=== PATIENT | female | born 1940 | race African-American/Black ===

== ENCOUNTER 2018-11-07 19:18 | Inpatient (IN) | payer MEDICARE, MEDICAID ==
[~2018-11-07] VITALS: Ht 157.5 cm; Wt 92.5 kg
[~2018-11-07 19:18] MED LIST: ISOS60TA4 PO; LACT10SO6 PO; MELO-106 MT; MONT10TA24 PO; SIMV40TA2 PO; SPIR25TA6 PO
[2018-11-07] MEDS ORDERED: ASPIRIN 81MG TABLET PO ONE (20:45)
[2018-11-07 21:32] LABS: HEMOGLOBIN. 10.4 g/dL (12.0-16.0); MEAN CORPUSCULAR HEMOGLOBIN 27.3 pg (28.0-32.0); MEAN CORPUSCULAR VOLUME 86.4 fL (81.0-99.0); PLATELET 222 x1000/uL (130-400); RED BLOOD CELL COUNT 3.82 mill/uL (4.2-5.4); RED CELL DISTRIBUTION WIDTH 18.2 % (11.6-14.6)
[2018-11-07 21:37] LABS: CHLORIDE 102 mEq/L (98-107)
[2018-11-07] MEDS ORDERED: FUROSEMIDE 20MG/2ML VIAL IVP ONE (22:00)
[2018-11-07 22:08] LABS: PLATELET ESTIMATE NORMAL
[2018-11-07] MEDS ORDERED: DIPHENHYDRAMINE 50MG/ML VIAL IV PRN (22:15)
[2018-11-07] MEDS ORDERED: NA PHOS,M-B/NA PHOS,DI-BA ENEMA 118ML PR PRN (22:15)
[2018-11-07] MEDS ORDERED: MAGNESIUM/ALUMINUM HYDROXIDE/SIMETHICONE 30ML UDC PO PRN (22:15)
[2018-11-07] MEDS ORDERED: NITROGLYCERIN 0.4MG TABLET SL SL PRN (22:15)
[2018-11-07] MEDS ORDERED: ONDANSETRON HCL 4MG/2ML INJ IV PRN (22:15)
[2018-11-07] MEDS ORDERED: ACETAMINOPHEN 325MG TABLET PO PRN (22:15)
[2018-11-07] MEDS ORDERED: CLONIDINE 0.1MG TABLET PO PRN (22:15)
[2018-11-07] MEDS ORDERED: ENOXAPARIN 40MG/0.4ML SYR SUBCUT SCH (22:15)
[2018-11-07 23:17] LABS: FOLIC ACID (FOLATE) SERUM 11.9 ng/mL (>5.38)
[2018-11-08] MEDS: GUAIFENESIN 200MG/10ML SUGAR FREE UDC PO PRN ×2 (02:46→23:07)
[2018-11-08] MEDS: IPRATROPIUM/ALBUTEROL 0.5-3(2.5)MG/3ML NEB INH PRN (05:27)
[2018-11-08] MEDS: CARVEDILOL 3.125 MG TABLET PO SCH ×2 (06:00→18:07)
[2018-11-08 06:28] LABS: CREATINE KINASE MB FRACTION 1.2 ng/mL (0.5-3.6)
[2018-11-08] MEDS: ASPIRIN 325MG EC TABLET PO SCH (09:00)
[2018-11-08] MEDS: ENOXAPARIN 30MG/0.3ML SYR SUBCUT SCH (09:00)
[2018-11-08] MEDS: SPIRONOLACTONE 25MG TABLET PO SCH ×2 (09:00→21:00)
[2018-11-08] MEDS: FAMOTIDINE 20MG TABLET PO SCH (09:00)
[2018-11-08] MEDS: FUROSEMIDE 40MG/4ML VIAL IVP SCH ×2 (09:35→21:00)
[2018-11-08 17:02] LABS: CREATINE KINASE MB FRACTION 1.1 ng/mL (0.5-3.6)
[2018-11-08] MEDS: ATORVASTATIN CALCIUM 20MG TABLET PO SCH (21:00)
[2018-11-08 22:00] VITALS: BP 118/69
[2018-11-08] MEDS ORDERED: FURO80TA87 PO (22:16)
[2018-11-08] MEDS ORDERED: ASPI-1159 PO (22:16)
[2018-11-08] MEDS ORDERED: ALBUL GT (22:17)
[2018-11-08] MEDS: ZOLPIDEM TARTRATE 5MG TABLET PO PRN (23:07)
[2018-11-08 23:34] VITALS: BP 122/66
[2018-11-09 04:00] VITALS: BP 135/77
[2018-11-09] MEDS: CARVEDILOL 3.125 MG TABLET PO SCH ×2 (05:20→17:04)
[2018-11-09 08:00] VITALS: BP 121/89
[2018-11-09] MEDS: SPIRONOLACTONE 25MG TABLET PO SCH ×2 (08:38→20:17)
[2018-11-09] MEDS: ASPIRIN 325MG EC TABLET PO SCH (08:38)
[2018-11-09] MEDS: FAMOTIDINE 20MG TABLET PO SCH (08:38)
[2018-11-09] MEDS: FUROSEMIDE 40MG/4ML VIAL IVP SCH ×2 (08:38→20:16)
[2018-11-09] MEDS: DOCUSATE SODIUM 100MG CAPSULE PO PRN ×2 (08:38→22:27)
[2018-11-09] MEDS: ENOXAPARIN 30MG/0.3ML SYR SUBCUT SCH (08:39)
[2018-11-09 09:50] LABS: EOSINOPHILS % 3.7 % (0.0-5.0); HEMATOCRIT. 35.2 % (36.0-48.0); HEMOGLOBIN. 11.3 g/dL (12.0-16.0); LYMPHOCYTES % 21.4 % (20.0-50.0); MEAN CORPUSCULAR HEMOGLOBIN 27.6 pg (28.0-32.0); MEAN CORPUSCULAR VOLUME 86.3 fL (81.0-99.0); MEAN PLATELET VOLUME 9.1 fl (7.4-10.4); MONOCYTES % 13.1 % (2.0-8.0); NEUTROPHILS % 60.8 % (40.0-76.0); PLATELET 226 x1000/uL (130-400); RED BLOOD CELL COUNT 4.08 mill/uL (4.2-5.4); RED CELL DISTRIBUTION WIDTH 17.6 % (11.6-14.6)
[2018-11-09 09:53] LABS: CHLORIDE 106 mEq/L (98-107)
[2018-11-09 12:00] VITALS: BP 108/64
[2018-11-09] MEDS: TRAMADOL 50MG TABLET PO PRN (15:24)
[2018-11-09 16:00] VITALS: BP 111/79
[2018-11-09 20:00] VITALS: BP 118/82
[2018-11-09] MEDS: ATORVASTATIN CALCIUM 20MG TABLET PO SCH (20:16)
[2018-11-10] VITALS: BP 125/71
[2018-11-10 04:00] VITALS: BP 137/83
[2018-11-10] MEDS: CARVEDILOL 3.125 MG TABLET PO SCH ×2 (05:45→18:03)
[2018-11-10 06:25] LABS: *AMPHETAMINES SCREEN URINE NEGATIVE (NEGATIVE); *BARBITURATES SCREEN URINE NEGATIVE (NEGATIVE); *BENZODIAZEPINES SCREEN URINE NEGATIVE (NEGATIVE); *COCAINE SCREEN URINE NEGATIVE (NEGATIVE); METHADONE URINE SCREEN NEGATIVE (NEGATIVE); OPIATES URINE SCREEN NEGATIVE (NEGATIVE)
[2018-11-10 06:26] LABS: CANNABINOID URINE SCREEN NEGATIVE (NEGATIVE); PHENCYCLIDINE URINE SCREEN NEGATIVE (NEGATIVE)
[2018-11-10 06:28] LABS: HEMATOCRIT. 34.5 % (36.0-48.0); HEMOGLOBIN. 11.1 g/dL (12.0-16.0); MEAN CORPUSCULAR HEMOGLOBIN 27.8 pg (28.0-32.0); MEAN CORPUSCULAR VOLUME 86.3 fL (81.0-99.0); MEAN PLATELET VOLUME 9.3 fl (7.4-10.4); PLATELET 227 x1000/uL (130-400); RED BLOOD CELL COUNT 3.99 mill/uL (4.2-5.4); RED CELL DISTRIBUTION WIDTH 17.6 % (11.6-14.6)
[2018-11-10 06:39] LABS: CHLORIDE 103 mEq/L (98-107)
[2018-11-10 06:56] LABS: CREATINE KINASE MB FRACTION < 1.0 ng/mL (0.5-3.6); HDL CHOLESTEROL 36 mg/dL (40-59); LDL CHOLESTEROL 57 mg/dL (5-100)
[2018-11-10 06:57] LABS: CREATINE KINASE 59 IU/L (26-192)
[2018-11-10 08:00] VITALS: BP 99/68
[2018-11-10] MEDS: FUROSEMIDE 40MG/4ML VIAL IVP SCH ×2 (09:00→20:50)
[2018-11-10] MEDS: SPIRONOLACTONE 25MG TABLET PO SCH ×2 (09:00→20:50)
[2018-11-10] MEDS: DOCUSATE SODIUM 100MG CAPSULE PO PRN (09:04)
[2018-11-10] MEDS: ASPIRIN 325MG EC TABLET PO SCH (09:04)
[2018-11-10] MEDS: FAMOTIDINE 20MG TABLET PO SCH (09:05)
[2018-11-10] MEDS: TRAMADOL 50MG TABLET PO PRN (09:05)
[2018-11-10] MEDS: ENOXAPARIN 30MG/0.3ML SYR SUBCUT SCH (09:06)
[2018-11-10 12:00] VITALS: BP 143/74
[2018-11-10] MEDS: GUAIFENESIN 200MG/10ML SUGAR FREE UDC PO PRN (13:01)
[2018-11-10] MEDS: LORAZEPAM 0.5MG TABLET PO PRN (13:01)
[2018-11-10 14:22] LABS: PLATELET ESTIMATE NORMAL
[2018-11-10] MEDS ORDERED: BENZONATATE 100MG CAPSULE PO PRN (14:45)
[2018-11-10] MEDS ORDERED: BUDESONIDE 0.5MG/2ML NEB HHN SCH (15:00)
[2018-11-10 18:27] VITALS: BP 104/48
[2018-11-10 20:00] VITALS: BP 115/76
[2018-11-10] MEDS: ATORVASTATIN CALCIUM 20MG TABLET PO SCH (20:49)
[2018-11-11] VITALS: BP 124/83
[2018-11-11] MEDS: ZOLPIDEM TARTRATE 5MG TABLET PO PRN (03:28)
[2018-11-11 04:00] VITALS: BP 122/78
[2018-11-11] MEDS: CARVEDILOL 3.125 MG TABLET PO SCH ×2 (06:25→18:29)
[2018-11-11 06:35] LABS: HEMATOCRIT. 32.1 % (36.0-48.0); HEMOGLOBIN. 10.3 g/dL (12.0-16.0); MEAN CORPUSCULAR VOLUME 86.9 fL (81.0-99.0); MEAN PLATELET VOLUME 9.1 fl (7.4-10.4); PLATELET 227 x1000/uL (130-400); RED BLOOD CELL COUNT 3.69 mill/uL (4.2-5.4); RED CELL DISTRIBUTION WIDTH 17.6 % (11.6-14.6)
[2018-11-11 06:38] LABS: CHLORIDE 102 mEq/L (98-107)
[2018-11-11 08:00] VITALS: BP 122/73
[2018-11-11] MEDS: BUDESONIDE 0.5MG/2ML NEB HHN SCH ×2 (09:06→21:25)
[2018-11-11] MEDS: IPRATROPIUM/ALBUTEROL 0.5-3(2.5)MG/3ML NEB INH PRN ×2 (09:06→21:25)
[2018-11-11] MEDS: FUROSEMIDE 40MG/4ML VIAL IVP SCH ×2 (09:44→20:30)
[2018-11-11] MEDS: ENOXAPARIN 40MG/0.4ML SYR SUBCUT SCH (09:44)
[2018-11-11] MEDS: ASPIRIN 81MG TABLET PO SCH (09:44)
[2018-11-11] MEDS: FAMOTIDINE 20MG TABLET PO SCH (09:45)
[2018-11-11] MEDS: SPIRONOLACTONE 25MG TABLET PO SCH ×2 (09:45→20:30)
[2018-11-11 11:40] LABS: PLATELET ESTIMATE NORMAL
[2018-11-11 12:00] VITALS: BP 102/75
[2018-11-11] MEDS: GUAIFENESIN 200MG/10ML SUGAR FREE UDC PO PRN ×2 (15:17→20:03)
[2018-11-11 16:00] VITALS: BP 112/73
[2018-11-11 20:00] VITALS: BP 113/69
[2018-11-11] MEDS: ATORVASTATIN CALCIUM 20MG TABLET PO SCH (20:30)
[2018-11-12 00:05] VITALS: BP 120/85
[2018-11-12] MEDS: LORAZEPAM 0.5MG TABLET PO PRN (01:02)
[2018-11-12] MEDS: GUAIFENESIN 200MG/10ML SUGAR FREE UDC PO PRN (03:03)
[2018-11-12 04:00] VITALS: BP 124/87
[2018-11-12] MEDS: CARVEDILOL 3.125 MG TABLET PO SCH (05:33)
[2018-11-12 07:29] LABS: HEMATOCRIT. 32.2 % (36.0-48.0); HEMOGLOBIN. 10.4 g/dL (12.0-16.0); MEAN CORPUSCULAR VOLUME 86.5 fL (81.0-99.0); MEAN PLATELET VOLUME 9.2 fl (7.4-10.4); PLATELET 239 x1000/uL (130-400); RED BLOOD CELL COUNT 3.72 mill/uL (4.2-5.4); RED CELL DISTRIBUTION WIDTH 17.1 % (11.6-14.6)
[2018-11-12] MEDS: BUDESONIDE 0.5MG/2ML NEB HHN SCH (07:50)
[2018-11-12 08:00] VITALS: BP 124/95
[2018-11-12] MEDS: FUROSEMIDE 40MG/4ML VIAL IVP SCH (09:09)
[2018-11-12] MEDS: ASPIRIN 81MG TABLET PO SCH (09:09)
[2018-11-12] MEDS: ENOXAPARIN 40MG/0.4ML SYR SUBCUT SCH (09:10)
[2018-11-12] MEDS: SPIRONOLACTONE 25MG TABLET PO SCH (09:10)
[2018-11-12] MEDS: FAMOTIDINE 20MG TABLET PO SCH (09:10)
[2018-11-12] MEDS ORDERED: SILDENAFIL CITRATE 20MG TABLET PO SCH (11:00)
[2018-11-12 11:22] VITALS: BP_SYST 108; BP_SYST 119; BP_DIAS 79; BP_DIAS 89
[2018-11-12 11:45] VITALS: BP 108/79
[2018-11-12 12:00] VITALS: BP 117/85
[2018-11-12 12:12] LABS: PLATELET ESTIMATE NORMAL
== END 2018-11-12 16:39 | disposition home health service (06) | DRG 291 ==
LOC: ER 19:18 → 7WST 21:55 → SUPCPDRO 22:00 → ENRESERV 11-08 20:15
PROVIDERS: ADMIT Internal Medicine; ATTEND Internal Medicine
DX: I11.0 Hypertensive heart disease with heart failure (principal); J96.00 Acute respiratory failure, unspecified whether with hypoxia or hypercapnia; E44.1 Mild protein-calorie malnutrition; I44.2 Atrioventricular block, complete; I50.43 Acute on chronic combined systolic (congestive) and diastolic (congestive) heart failure; I25.110 Atherosclerotic heart disease of native coronary artery with unstable angina pectoris; I42.0 Dilated cardiomyopathy; D63.8 Anemia in other chronic diseases classified elsewhere; E78.00 Pure hypercholesterolemia, unspecified; E83.51 Hypocalcemia; I27.20 Pulmonary hypertension, unspecified; J45.909 Unspecified asthma, uncomplicated; E78.5 Hyperlipidemia, unspecified; I34.0 Nonrheumatic mitral (valve) insufficiency; Z95.0 Presence of cardiac pacemaker; I25.2 Old myocardial infarction; Z68.37 Body mass index [BMI] 37.0-37.9, adult
CPT/HCPCS: 36415; 71045; 74018; 78582; 80048; 80061; 80305; 82550; 82553; 82607; 82746; 83036; 83540; 83550; 83735; 83880; 84443; 84484; 85379; 93005; 93306; 93970; 94640; 96372; 96374; 97162; 97166; 97530; 99291; A9558; J1650; J1940; J7620; J7626